=== PATIENT | male | born 1980 | race Caucasian/White ===

== ENCOUNTER 2021-05-29 12:37 | Outpatient (CLI) | payer OTHER, SELFPAY ==
--- NOTE | 2021-05-29 13:19 | XR_ITS ---
WS: [id number] XR cervical spine 3V* [id number] REASON FOR EXAM: M14.60 - Charcot's joint, unspecified site FINDINGS: Normal cervical spine curvature in the AP and lateral views. No significant vertebral body abnormality. Intervertebral disc spaces are well preserved. Normal facet joint alignment. XR/XR cervical spine 3V* [id number] IMPRESSION: No significant abnormality.
== END 2021-05-29 12:38 | disposition home or self-care (01) ==
PROVIDERS: Visit Provider Nurse Practitioner
DX: M14.60 Charcot's joint, unspecified site (principal)
CPT/HCPCS: 72040

== ENCOUNTER → 2022-09-02 09:25 | Outpatient (BNVA) | payer OTHER, SELFPAY | PROVIDERS: PCP Family Medicine; Visit Provider Nurse Practitioner | DX: Z13.6 Encounter for screening for cardiovascular disorders (principal) | CPT/HCPCS: 80053; 80061; 84443; 85025; 85651; 86140 ==

== ENCOUNTER 2022-09-14 07:50 | Outpatient (CLI) | payer OTHER, SELFPAY ==
--- NOTE | 2022-09-14 08:00 | MR_ITS ---
WS: [id number] MRI CERVICAL SPINE NONCONTRAST HISTORY: M14.60 - Charcot's joint, unspecified site COMPARISON: None available. Technique: Multiplanar, multisequence noncontrast imaging of the cervical spine. Normal cervical alignment with no compression fracture or significant disc space narrowing. Signal within the cervical cord is normal. Visualized posterior fossa is unremarkable. Craniocervical junction, C1 and C2 relationship, odontoid process and soft tissues are normal. C2-C3: Normal. C3-C4: Normal. C4-C5: Normal. C5-C6: Mild annular disc bulging and LEFT foraminal osteophytes. There is very minimal encroachment u chiquita the LEFT foramen. No high-grade stenosis. C6-C7: Mild osteophytic ridging and annular disc bulging. More prominent RIGHT foraminal disc osteoph yte complex. Mild facet joint arthritis. C7-T1: Normal. Paraspinal soft tissue are normal. MR/MR cervical spin wo con* [id number] IMPRESSION: 1. RIGHT foraminal disc osteophyte complex at C6-7. Causing mild stenosis. The re may be a component of facet joint arthritis contributing to the foraminal na rrowing. 2. Minimal encroachment LEFT foramen of C5-6 due to disc and small foraminal o steophytes.
== END 2022-09-14 07:51 | disposition home or self-care (01) ==
PROVIDERS: PCP Family Medicine; Visit Provider Nurse Practitioner
DX: M25.78 Osteophyte, vertebrae (principal); M48.02 Spinal stenosis, cervical region
CPT/HCPCS: 72141; 80053; 80061; 84443; 85025; 85651; 86140

== ENCOUNTER → 2023-01-07 11:10 | Outpatient (BNVA) | payer OTHER, SELFPAY | PROVIDERS: PCP Family Medicine; Visit Provider Clinical Nurse Specialist Adult Health | DX: R11.2 Nausea with vomiting, unspecified (principal); R11.14 Bilious vomiting | CPT/HCPCS: 80053; 82150; 83690; 86003; 86008 ==